=== PATIENT | female | born 1980 ===

== ENCOUNTER → 2018-03-27 | Outpatient (CLI) | payer BC ==
[~2018-03-27] MED LIST: ACEBUTCAFT PO; CLON2; DILANTIN; FAMO40 PO; HYDACE5 PO; LEVE500; LEVE500 PO; LORA1 PO; NAPR500 PO; OXYACE5T PO; OXYC5; PHENY100ER; PRED10 PO; PROACE100 PO; PROM25; PROM25 PO; TOPI100; TOPI100 PO; TRAM50 PO; ZONI100
== END | disposition home or self-care (01) ==
LOC: PLD 12:35 → LAB SHORT 12:35
DX: D23.62 Other benign neoplasm of skin of left upper limb, including shoulder (principal)
CPT/HCPCS: 88305